=== PATIENT | female | born 1940 | race Caucasian/White ===

== ENCOUNTER 2022-03-15 12:05 | Inpatient (IN) ==
[2022-03-15] MEDS ORDERED: 0.9 % Sodium Chloride 1,000 ML IVC ONE (13:07)
[2022-03-15 13:37] LABS: Bilirubin,Urine Negative (Negative); Blood,Urine Negative (Negative); Clarity,Urine Slightly Cloudy (Clear); Color,Urine Yellow (Yellow); Glucose,Urine (UA) >=1000 mg/dL (Normal); Ketones,Urine Negative (Negative); Leukocyte Esterase,Urine Trace (Negative); Nitrite,Urine Positive (Negative); Protein,Urine Negative (Neg-Trace); Urobilinogen,Urine Normal (Normal)
[2022-03-15] MEDS ORDERED: Ondansetron 4 MG/2 ML VIAL IVP PRN (13:39)
[2022-03-15] MEDS ORDERED: Acetaminophen 325 MG TABLET PO PRN (13:39)
[2022-03-15] MEDS ORDERED: Naloxone 0.4 MG/ML INJ IVP PRN (13:39)
[2022-03-15] MEDS ORDERED: D5% in Water 1,000 ML IVC PRN (13:43)
[2022-03-15] MEDS ORDERED: Dextrose 4 GM Chewable Tablets PO PRN ×2 (13:43)
[2022-03-15] MEDS ORDERED: *HR* Dextrose 50 % in Water (Syg) 50 ML SYRINGE IVP PRN (13:43)
[2022-03-15 13:46] LABS: Bacteria,Urine Many per hpf (None-Few)
[2022-03-15 15:59] LABS: VBG HCO3 21 mEq/L (21-27); VBG PCO2 41 mmHg (41-51); VBG PH 7.32 pH Units (7.32-7.42); VBG PO2 29 mmHg (25-50)
[2022-03-15] MEDS: 0.9 % Sodium Chloride 1,000 ML IVC SCH (16:19)
[2022-03-15] MEDS ORDERED: Insulin LISPRO 300 UNITS/3 ML VIAL SUBQ SCH ×2 (16:30→21:00)
[2022-03-15] MEDS ORDERED: *HR* Heparin 5,000 UNIT/ML VIAL IVP ONE (20:27)
[2022-03-15] MEDS ORDERED: *HR* Heparin 5,000 UNIT/ML VIAL IVP PRN ×2 (20:27)
[2022-03-15] MEDS: Insulin DETEMIR 100 UNIT/ML X5UNITS SUBQ SCH (20:41)
[2022-03-15 20:46] LABS: Hematocrit 40.3 % (35.3-44.9); Hemoglobin 13.5 g/dL (11.5-15.4); Mean Corpuscular HGB Conc 33.5 g/dL (31.6-35.5); Mean Corpuscular Volume 95.5 fL (83.0-100.0); Mean Platelet Volume 9.5 fL (9.4-12.4); Platelet Count 227 K/mcL (140-400); Red Blood Count 4.22 M/mcL (3.82-4.97); Red Cell Distribution Width 13.3 % (11.5-14.5); White Blood Count 8.4 K/mcL (4.3-11.1)
[2022-03-15 20:50] LABS: Heparin anti-factor XA UFH < 0.04 IU/mL (0.30-0.70)
[2022-03-15 20:51] LABS: INR 1.1; Prothrombin Time 12.1 Seconds (9.4-12.1)
[2022-03-15] MEDS ORDERED: Melatonin 3 MG TABLET PO PRN (21:00)
[2022-03-15 21:14] LABS: Estimated Average Glucose 252 mg/dl; Hemoglobin A1C 10.4 %
[2022-03-15] MEDS: Heparin 25,000UNIT/250ML 1/2NS 25,000 UNIT/250 ML IV.SOLN IVC SCH (21:29)
[2022-03-16] MEDS: 0.9 % Sodium Chloride 1,000 ML IVC SCH ×2 (00:24→08:17)
[2022-03-16 04:52] LABS: Hematocrit 38.2 % (35.3-44.9); Hemoglobin 12.4 g/dL (11.5-15.4); Mean Corpuscular HGB Conc 32.5 g/dL (31.6-35.5); Mean Corpuscular Hemoglobin 31.6 pg (28.0-33.3); Mean Corpuscular Volume 97.2 fL (83.0-100.0); Mean Platelet Volume 9.3 fL (9.4-12.4); Platelet Count 205 K/mcL (140-400); Red Blood Count 3.93 M/mcL (3.82-4.97); Red Cell Distribution Width 13.4 % (11.5-14.5); White Blood Count 8.4 K/mcL (4.3-11.1)
[2022-03-16 05:15] LABS: Calcium 8.4 mg/dL (8.6-10.3); Magnesium 2.3 mg/dL (1.6-2.6); Phosphorous 3.6 mg/dL (2.7-4.5); Potassium 4.5 mEq/L (3.5-5.1)
[2022-03-16] MEDS ORDERED: *HR* Enoxaparin 40 MG/0.4 ML SYRINGE SQ SCH (06:00)
[2022-03-16] MEDS: Famotidine 20 MG TABLET PO SCH (08:18)
[2022-03-16] MEDS: Insulin LISPRO 300 UNITS/3 ML VIAL SUBQ SCH ×4 (08:20→20:57)
[2022-03-16] MEDS: Insulin DETEMIR 100 UNIT/ML X5UNITS SUBQ SCH ×2 (08:31→20:59)
[2022-03-16] MEDS ORDERED: 0.9 % Sodium Chloride 1,000 ML IVC SCH (12:15)
[2022-03-16] MEDS: cefTRIAXone 1,000 MG in Water for inj. (sterile) 10 ML IVP SCH (13:28)
[2022-03-16] MEDS: Sodium Bicarbonate 75 MEQ in 0.45 % Sodium Chloride 1,000 ML IVC SCH (17:44)
[2022-03-17] MEDS: cefTRIAXone 1,000 MG in Water for inj. (sterile) 10 ML IVP SCH ×3 (03:48→17:40)
[2022-03-17] MEDS: Sodium Bicarbonate 75 MEQ in 0.45 % Sodium Chloride 1,000 ML IVC SCH (06:43)
[2022-03-17 07:14] LABS: Hematocrit 35.2 % (35.3-44.9); Hemoglobin 11.4 g/dL (11.5-15.4); Mean Corpuscular HGB Conc 32.4 g/dL (31.6-35.5); Mean Corpuscular Hemoglobin 31.8 pg (28.0-33.3); Mean Corpuscular Volume 98.1 fL (83.0-100.0); Mean Platelet Volume 9.4 fL (9.4-12.4); Platelet Count 214 K/mcL (140-400); Red Blood Count 3.59 M/mcL (3.82-4.97); Red Cell Distribution Width 13.5 % (11.5-14.5); White Blood Count 6.8 K/mcL (4.3-11.1)
[2022-03-17 07:34] LABS: Calcium 8.1 mg/dL (8.6-10.3)
[2022-03-17] MEDS: Insulin LISPRO 300 UNITS/3 ML VIAL SUBQ SCH ×4 (08:23→20:47)
[2022-03-17] MEDS: Insulin DETEMIR 100 UNIT/ML X5UNITS SUBQ SCH ×2 (08:41→20:46)
[2022-03-17] MEDS ORDERED: 0.9 % Sodium Chloride 500 ML ONE (19:19)
[2022-03-17] MEDS: Heparin 25,000UNIT/250ML 1/2NS 25,000 UNIT/250 ML IV.SOLN IVC SCH ×2 (19:45→19:53)
[2022-03-18 02:28] LABS: Hematocrit 32.8 % (35.3-44.9); Hemoglobin 10.9 g/dL (11.5-15.4); Mean Corpuscular HGB Conc 33.2 g/dL (31.6-35.5); Mean Corpuscular Hemoglobin 31.9 pg (28.0-33.3); Mean Corpuscular Volume 95.9 fL (83.0-100.0); Mean Platelet Volume 9.1 fL (9.4-12.4); Platelet Count 219 K/mcL (140-400); Red Blood Count 3.42 M/mcL (3.82-4.97); Red Cell Distribution Width 13.2 % (11.5-14.5); White Blood Count 7.9 K/mcL (4.3-11.1)
[2022-03-18 02:49] LABS: Calcium 8.2 mg/dL (8.6-10.3); Potassium 3.6 mEq/L (3.5-5.1)
[2022-03-18] MEDS: cefTRIAXone 1,000 MG in Water for inj. (sterile) 10 ML IVP SCH (04:43)
[2022-03-18] MEDS ORDERED: 0.9 % Sodium Chloride 1,000 ML IVC SCH (07:45)
[2022-03-18] MEDS: Famotidine 20 MG TABLET PO SCH (08:19)
[2022-03-18] MEDS: Insulin LISPRO 300 UNITS/3 ML VIAL SUBQ SCH ×2 (08:20→12:36)
[2022-03-18] MEDS: Insulin DETEMIR 100 UNIT/ML X5UNITS SUBQ SCH (11:24)
[2022-03-18 12:02] VITALS: BP 133/60; PULSE 57; RESP 16; TEMP 98.5; O2SAT 94
[2022-03-18] MEDS ORDERED: *HR* Rivaroxaban 15 MG TABLET PO SCH (12:09)
[2022-03-18 12:14] LABS: Influenza A PCR Negative (Negative); Influenza B PCR Negative (Negative); Resp. Syncytial Virus PCR Negative (Negative)
[2022-03-18 12:15] LABS: SARS-CoV-2 by PCR (In House) Negative (Negative)
== END 2022-03-18 15:43 | DRG 683 ==
LOC: INPPIK 12:05 → EMEROOPIK 12:05 → INPPIK 15:10
PROVIDERS: ADMIT Family Medicine; ATTEND Family Medicine